=== PATIENT | female | born 1945 | race Caucasian/White ===

== ENCOUNTER 2017-11-15 08:22 | Inpatient (IN) | payer OTHER ==
[2017-10-21 10:47] VITALS: BMI 33.0
--- NOTE | 2017-10-21 11:10 | PAT Medication Instructions ---
Service Date Oct 21, 2017. Current Home Medication List Cholecalciferol (Vitamin D3), 1 TAB PO QAM Garlic (Garlic), 1 CAP PO QAM Ibuprofen (Advil), 400 MG PO UD PRN for Pain Ocuvite Preservision (Ocuvite Preservision), 1 TAB PO QAM Vitamin E (Vitamin E 400 Iu), 400 INTER.UNIT PO QAM Medication Instructions For Your Scheduled Surgery -Contact your surgeon for instructions for: Ibuprofen (Advil), 400 MG PO UD PRN for Pain - Hold the following medications 2 weeks prior to surgery: Garlic (Garlic), 1 CAP PO QAM Ocuvite Preservision (Ocuvite Preservision), 1 TAB PO QAM Vitamin E (Vitamin E 400 Iu), 400 INTER.UNIT PO QAM - Hold the following medications the morning of surgery: Cholecalciferol (Vitamin D3), 1 TAB PO QAM If you have any questions please call us at [phone] or [phone] or [phone]
--- NOTE | 2017-10-21 11:46 | DIAGNOSTIC IMAGING REPORT ---
CHEST 2 VIEWS ROUTINE HISTORY: 72 years-old Female PAT preoperative exam. No acute chest complaints. COMPARISON: None available TECHNIQUE: PA and lateral views of the chest FINDINGS: Cardiomediastinal and hilar silhouettes are within normal limits. Atherosclerosis of the aorta. Surgical clips project over the left breast. Mild biapical pleural-parenchymal scarring. Lungs are mildly hyperinflated. No pneumothorax, pleural effusion, focal airspace consolidation or overt pulmonary edema. Bones of the chest appear grossly intact. There are degenerative changes noted within the shoulders and spine. IMPRESSION: Mild hyperinflation without acute process. The above report was generated using voice recognition software. It may contain grammatical, syntax or spelling errors. Electronically signed by: Yury Del Rio M.D. 10/21/2017 11:45 AM Dictated Date/Time: 10/21/2017 11:44 AM
[2017-10-21 12:45] LABS: BASO % 0.9 %; BASO ABS # 0.08 K/uL (0-0.2); EOS % 1.6 %; EOS ABS # 0.14 K/uL (0-0.5); HEMATOCRIT 42.4 % (37-47); HEMOGLOBIN 14.2 g/dL (12.0-16.0); IG# 0.03 K/uL (0.00-0.02); LYMPH % 22.1 %; MEAN CORPUSCULAR HEMOGLOBIN 31.5 pg (25-34); MEAN CORPUSCULAR HGB CONC 33.5 g/dl (32-36); MEAN PLATELET VOLUME 10.4 fL (7.4-10.4); MONO % 10.4 %; MONO ABS # 0.89 K/uL (0.11-0.59); NEUT % 64.7 %; NEUT ABS # 5.55 K/uL (1.4-6.5); PLATELET COUNT 455 K/uL (130-400); RED CELL DISTRIBUTION WIDTH CV 13.9 % (11.5-14.5); RED CELL DISTRIBUTION WIDTH SD 47.6 fL (36.4-46.3); WHITE BLOOD COUNT 8.59 K/uL (4.8-10.8)
[2017-10-21 12:47] LABS: PTT PATIENT 24.2 SECONDS (21.0-31.0)
[2017-10-21 12:57] LABS: CALCIUM 9.8 mg/dl (8.5-10.1); CREATININE 0.78 mg/dl (0.60-1.20); POTASSIUM 4.5 mmol/L (3.5-5.1)
--- NOTE | 2017-11-14 16:27 | HISTORY & PHYSICAL EXAMINATION ---
DATE OF ADMISSION: 11/15/2017 HISTORY AND PHYSICAL ADMISSION NOTE CHIEF COMPLAINT: Primary osteoarthritis of the left hip. HISTORY OF PRESENT ILLNESS: Mirta is a pleasant 72-year-old female who has a history of a right total hip arthroplasty done [address] Anton. She is doing well with her right hip. She was referred by a friend to see me for ongoing left hip pain. X-rays and clinical examination of her left hip showed advanced osteoarthritis. After failing conservative treatment, she elected to proceed with a left total hip arthroplasty. PAST MEDICAL HISTORY: Denies. PAST SURGICAL HISTORY: Significant for a right total hip arthroplasty, trigger finger release, cholecystectomy and surgery to her left eyelid. ALLERGIES: None. MEDICATIONS: None. SOCIAL HISTORY: She is . Never drinks. Denies any tobacco or IV drug use. She is moderately active. FAMILY HISTORY: Denies. REVIEW OF SYSTEMS: MUSCULOSKELETAL: She complains mostly of left hip pain. All other pertinent review of systems is negative. PHYSICAL EXAMINATION: GENERAL: She is awake, alert and oriented x3. She is in no apparent distress. She is very pleasant. HEENT: Pupils equal, round and reactive to light. Extraocular motion intact. Oral mucosa is pink and moist. HEART: Regular rate per radial pulse. LUNGS: Jelly symmetrically bilaterally with no audible breath sounds. ABDOMEN: Soft, nontender, nondistended. MUSCULOSKELETAL: On physical examination of the left hip, she has reduced range of motion with forced internal and external rotation and reproducible pain in her left groin. Leg lengths are equal. She has active dorsiflexion and plantarflexion of her left ankle. Sensation is intact. She has 5/5 muscle strength with left straight leg raise. IMAGING DATA: X-rays of the left hip do show advanced osteoarthritis with complete joint space narrowing, osteophyte formation and subchondral cyst. IMPRESSION: Primary osteoarthritis of the left hip. PLAN: Will proceed with a left total hip arthroplasty. Postoperatively, she will be started on aspirin for DVT prophylaxis and kept overnight in the hospital for postop medical management.
[~2017-11-15] VITALS: Ht 165.1 cm; Wt 91.8 kg
[2017-11-15] VITALS (8 sets, daily range): BP systolic 111–158; BP diastolic 61–80; PULSE 68–84; TEMP 36.4–37; O2SAT 93–100; Ht 165.1 cm; Wt 91.8 kg
[2017-11-15] MEDS: TRANEXAMIC ACID INJ 1,000 MG x 2 Bags IV SCH ×4 (06:30→09:59)
[~2017-11-15 08:22] MED LIST: ACETAMINOPHEN 500 MG TAB PO SCH; ATROPINE SULFATE 0.1 MG/ML 5ML SYR IV PRN; BUPIVACAINE 0.5 % 5 MG/1 ML PF 10ML VIAL ONE; CEFAZOLIN 2000MG IV PUSH 15 ML IV SCH; CHOL1000 PO; EpHEDrine SULFATE INJ 50 MG/ML AMP IV PRN; FAMOTIDINE 20 MG TAB PO SCH; FENTANYL CITRATE INJ 50 MCG/1 ML 2 ML VIAL IV PRN; FLUMAZENIL 0.1 MG/1 ML 10 ML VIAL IV PRN; GABAPENTIN 300 MG CAP PO SCH; GARL1200 PO; HYDROmorphone INJ 0.5 MG/0.5 ML SYR IV PRN; IBUP-1050 PO; LABETALOL HCL IV 5 MG/ML 20ML IV PRN; LACTATED RINGER'S 1000ML 1,000 ML IV SCH; LACTATED RINGER'S 1000ML IV SCH; MEPERIDINE HCL 25 MG/ML CARP IV PRN; MULT-190 PO; NALOXONE HCL 0.4 MG/1 ML VIAL/CARP IV PRN; ONDANSETRON INJ 2 MG/ML 2 ML VIAL IV PRN; PHENYLEPHRINE 100MCG/ML 5ML SYR IV PRN; ROPIVACAINE 5MG/ML 30 ML 150 MG, BUPIVACAINE 0.5% MPF INJ 30 ML, EpINEphrine HCL INJ 0.... INFIL SCH; VITA400C3 PO
--- NOTE | 2017-11-15 08:54 | History & Physical Bridge Note ---
H&P Re-Evaluation Bridge Note: I have examined the patient, reviewed the History & Physical and in the interval since the performance of the History & Physical I have noted the following changes of clinical significance: No changes noted
[2017-11-15] MEDS ORDERED: MIDAZOLAM HCL 1 MG/ML 2ML VIAL ONE (08:57)
[2017-11-15] MEDS ORDERED: BACITRACIN 50000 UNIT VIAL ONE (09:09)
[2017-11-15] MEDS ORDERED: ORTHO JOINT ANESTHETIC ONE (09:09)
[2017-11-15] MEDS ORDERED: FENTANYL CITRATE INJ 50 MCG/1 ML 2 ML VIAL ONE ×2 (10:37→11:18)
[2017-11-15] MEDS ORDERED: ONDANSETRON INJ 2 MG/ML 2 ML VIAL ONE (11:18)
[2017-11-15] MEDS ORDERED: DEXAMETHASONE SOD INJ 4 MG/ML VIAL ONE (11:18)
[2017-11-15] MEDS ORDERED: PROPOFOL IV EMULSION 10 MG/ML 20 ML VIAL IV ONE (11:18)
[2017-11-15] MEDS ORDERED: PHENYLEPHRINE 100MCG/ML 5ML SYR ONE (11:19)
[2017-11-15] MEDS ORDERED: EpHEDrine SULFATE 50MG/5ML SYR ONE (11:19)
--- NOTE | 2017-11-15 12:12 | [facility] Post Operative Brief Note ---
Immediate Operative Summary Operative Date Nov 15, 2017. Pre-Operative Diagnosis Primary osteoarthritis of the left hip Post-Operative Diagnosis Same as preop Procedure(s) Performed Left Anterior Total Hip Replacement Uncemented Surgeon Dr. Medellin Oxyhydrogen Welder Surgeon(s) Leodan Smith PA-C Estimated Blood Loss 250 ml Findings Consistent with Post-Op Diagnosis Specimens A. Left Femoral Head Drains None Anesthesia Type General Complication(s) none Disposition Disposition: Recovery Room / PACU
--- NOTE | 2017-11-15 12:13 | DIAGNOSTIC IMAGING REPORT ---
FLUOROSCOPIC IMAGES OF THE LEFT HIP CLINICAL HISTORY: LT ANTERIOR TOTAL COMPARISON STUDY: Left hip radiograph September 18, 2017. Fluoroscopy time: 47.4 seconds. FINDINGS: 2 fluoroscopic images demonstrate placement of a left acetabular cup with screw. Femoral component is noted. Alignment appears anatomic. Hardware is intact. No fracture or unexpected radiopaque foreign bodies. IMPRESSION: Expected findings during total left hip arthroplasty. Electronically signed by: Ángel Bosch M.D. 11/15/2017 12:11 PM Dictated Date/Time: 11/15/2017 12:10 PM
[2017-11-15] MEDS ORDERED: ONDANSETRON INJ 2 MG/ML 2 ML VIAL IV PRN (12:15)
[2017-11-15] MEDS ORDERED: BISACODYL 10 MG SUPP PR PRN (12:15)
[2017-11-15] MEDS ORDERED: MAGNESIUM HYDROXIDE SUSP 30 ML UDC PO PRN (12:15)
[2017-11-15] MEDS ORDERED: SOD PHOSPHATE/SOD BIPHOSPHATE ENEMA 132 ML BTL PR PRN (12:15)
[2017-11-15] MEDS ORDERED: OXYCODONE HCL IR 5 MG TAB (IMMEDIATE RELEASE) PO PRN (12:15)
[2017-11-15] MEDS ORDERED: METOCLOPRAMIDE HCL INJ 5 MG/ML 2 ML VIAL IV PRN (12:15)
[2017-11-15] MEDS ORDERED: MoRPHine SULFATE 2 MG/ML CARP IV PRN (12:15)
--- NOTE | 2017-11-15 13:12 | DIAGNOSTIC IMAGING REPORT ---
L PELVIS/UNILATERAL HIP 1 VIEW CLINICAL HISTORY: IN PACU - A/P PELVIS and LATERAL HIP INCLUDING ALL OF IMPLANT COMPARISON: 09/18/2017 DISCUSSION: Total left hip arthroplasty good position. Good contact between between prosthetic and underlying bone. Surgical drains are in position. There is a total right hip arthroplasty considered pre-existing. There appears to be partial subluxation of the femoral component in relation to the acetabulum. This is similar, however as compared to the prior study potentially a chronic basis. IMPRESSION: 1. Good position total left hip arthroplasty. 2. Partial subluxation total right hip prosthetic appearing to be unchanged compared to a prior outside series of images 09/18/2017 The above report was generated using voice recognition software. It may contain grammatical, syntax or spelling errors. Electronically signed by: Stan Trevino M.D. 11/15/2017 1:11 PM Dictated Date/Time: 11/15/2017 1:09 PM
--- NOTE | 2017-11-15 13:31 | Anesthesiology Progress Note ---
Anesthesia Post Op Note Date & Time Nov 15, 2017 at 13:30 Vital Signs Pain Intensity: 0 Vital Signs Past 12 Hours Date Time Temp Pulse Resp B/P (MAP) Pulse Ox O2 Delivery O2 Flow Rate FiO2 11/15/17 13:05 36.8 76 20 130/66 95 Nasal Cannula 2 11/15/17 12:55 80 25 135/72 95 Oxymask 10 11/15/17 12:45 79 18 128/69 95 Oxymask 10 11/15/17 12:35 37.1 87 16 136/76 96 Oxymask 10 11/15/17 08:46 36.6 79 18 158/80 95 Room Air Notes Mental Status: alert / awake / arousable, participated in evaluation Pt Amnestic to Procedure: Yes Nausea / Vomiting: adequately controlled Pain: adequately controlled Airway Patency, RR, SpO2: stable & adequate BP & HR: stable & adequate Hydration State: stable & adequate Neuraxial Anesthesia: was administered, sensory block is resolving Anesthetic Complications: no major complications apparent
--- NOTE | 2017-11-15 14:40 | OPERATIVE REPORT ---
DATE OF OPERATION: 11/15/2017 PREOPERATIVE DIAGNOSIS: Primary osteoarthritis of left hip. POSTOPERATIVE DIAGNOSIS: Same. PROCEDURE: Left total hip arthroplasty. SURGEON: Dr. Padilla Medellin. FURNITURE SANDER: Aguilar Smith PA-C, whose assistance was necessary for retraction and closure. ANESTHESIA: Spinal with a general anesthetic because the spinal was ineffective. COMPLICATIONS: None. CONDITION: Stable to PACU. IMPLANTS USED: I used a [employer] Taperloc total hip arthroplasty system with a size 50 G7 cup with a single 30 mm screw, an E1 neutral poly liner, a size 13 standard offset Taperloc stem and a 36 mm ceramic head with a -6 neck. INDICATIONS: Mirta is a pleasant 72-year-old female who presented to my office with complaints of chronic left hip and groin pain. X-rays and clinical examination were diagnostic for primary osteoarthritis of the left hip. After failing conservative treatment, she elected to undergo a left total hip arthroplasty. OPERATION AND FINDINGS: On 11/15/2017, she arrived at [facility] for the above procedure. She was seen in the preoperative holding and the operative extremity was identified and signed. She was given a preoperative antibiotic and a spinal anesthetic. She was taken back to the operating room, laid on table in supine position. Unfortunately, the spinal was not working very well, so she was then put under general anesthesia. The left hip was then prepped and draped in sterile fashion and brought up to a Purist leg positioner. A timeout was then done, and the patient and the operative extremity was properly identified. An anterior approach was used. Dissection was taken down through the fascia and the tensor muscle belly was retracted laterally and the rectus was retracted medially. The circumflex vessels were ligated and the capsule was incised and tagged for later repair. The femoral neck was then resected and the head was removed. The acetabulum was then exposed. Time was spent doing complete circumferential labral release. Sequential reaming of the acetabulum up to a size 49 reamer was done. Final reaming was done under fluoroscopy to ensure appropriate version. A 50 mm G7 cup was then impacted into place. A single 30 mm screw was placed, followed by the E1 neutral poly liner. Final x-rays of the acetabulum showed anatomic alignment. The proximal femur was then exposed. Sequential broaching up to a size 13 broach was done. Off that broach, a standard head and neck assembly was applied. The hip was then reduced. I was happy with the overall size of the stem but the hip seemed a little bit long. The hip was then dislocated. The trials were removed. The final size 13 standard Taperloc stem was then impacted into place. A 36 mm ceramic head with a -6 neck was then impacted into place. Hip was then reduced and the size of the components and the leg lengths were anatomic. The surrounding soft tissues were injected with 100 mL of an orthopedic pain control cocktail. The capsule was then closed with #1 Vicryl suture. The wound was then irrigated with 3 liters normal saline solution with bacitracin. The fascia was then closed with #1 PDS. Skin was closed with 2-0 Vicryl and donny. A Prevena VAC dressing was applied. She was then extubated, transferred to a [facility] and taken to the post-anesthesia care unit in stable condition. She tolerated the procedure well. I attest to the content of the Intraoperative Record and any orders documented therein. Any exception s are noted below.
[2017-11-15] MEDS: SODIUM CHLORIDE 0.9% 1000ML 1,000 ML IV SCH ×2 (15:17→23:53)
[2017-11-15] MEDS: KETOROLAC TROMETHAMINE 15 MG/ML VIAL IV. SCH ×2 (15:18→21:22)
[2017-11-15] MEDS: ACETAMINOPHEN IV 1,000 MG in EMPTY BAG 0 ML IV SCH ×2 (15:18→23:53)
[2017-11-15] MEDS: CEFAZOLIN IV 2,000 MG in SYRINGE 0 ML IV SCH (17:48)
[2017-11-15] MEDS: ASPIRIN 325 MG ECTAB PO SCH (20:38)
[2017-11-15] MEDS: DOCUSATE SODIUM 100 MG CAP PO SCH (20:38)
[2017-11-15] MEDS ORDERED: SENNA 8.6 MG TAB PO SCH (21:00)
[2017-11-16 03:31] VITALS: BP 156/70; PULSE 76; TEMP 36.9; O2SAT 94
[2017-11-16] MEDS: CEFAZOLIN IV 2,000 MG in SYRINGE 0 ML IV SCH (04:09)
[2017-11-16] MEDS: KETOROLAC TROMETHAMINE 15 MG/ML VIAL IV. SCH ×2 (04:09→08:59)
[2017-11-16 05:50] LABS: BASO % 0.1 %; BASO ABS # 0.02 K/uL (0-0.2); HEMOGLOBIN 12.4 g/dL (12.0-16.0); IG# 0.06 K/uL (0.00-0.02); LYMPH % 7.7 %; LYMPH ABS # 1.16 K/uL (1.2-3.4); MEAN CELL VOLUME 94.9 fL (80-100); MEAN CORPUSCULAR HEMOGLOBIN 31.8 pg (25-34); MEAN CORPUSCULAR HGB CONC 33.5 g/dl (32-36); MEAN PLATELET VOLUME 10.5 fL (7.4-10.4); MONO % 9.7 %; MONO ABS # 1.46 K/uL (0.11-0.59); NEUT % 82.1 %; NEUT ABS # 12.34 K/uL (1.4-6.5); PLATELET COUNT 346 K/uL (130-400); RED CELL DISTRIBUTION WIDTH CV 13.8 % (11.5-14.5); RED CELL DISTRIBUTION WIDTH SD 47.3 fL (36.4-46.3); WHITE BLOOD COUNT 15.04 K/uL (4.8-10.8)
[2017-11-16 06:20] LABS: CALCIUM 8.1 mg/dl (8.5-10.1); CREATININE 0.89 mg/dl (0.60-1.20); POTASSIUM 3.6 mmol/L (3.5-5.1)
[2017-11-16] MEDS ORDERED: ASPEC325 PO (07:17)
[2017-11-16] MEDS ORDERED: RXC5 PO (07:17)
--- NOTE | 2017-11-16 07:18 | Discharge Instructions ---
Discharge Instructions Date of Service Nov 16, 2017. Admission Reason for Admission: Left Hip Degenerative Joint Disease Discharge Discharge Diagnosis / Problem: Left Total Hip Discharge Goals Goal(s): Decrease discomfort, Improve function Activity Recommendations Activity Limitations: as noted below . Instructions / Follow-Up Instructions / Follow-Up Activity and Therapy Recommendations: * If you are using [facility] then Physical Therapy will be provided until they feel you are ready to start Outpatient Physical Therapy. If you are not using a Home Health agency then Outpatient Physical Therapy should start about 3-5 days from your day of surgery. Therapy will last about 3-6 weeks * You were shown a series of exercises in the hospital. Do these exercises three times each day including the exercises you were shown in physical therapy. * Get up and walk several times each day.~ For the first four weeks, try not to stand or walk for more than one hour at a time. If you do stand or walk for more than one hour, you will not hurt anything, but your leg will likely swell.~ ~ * As you feel comfortable, you may change from the walker or crutches to a cane and~then to independent walking. Medications: * Narcotic You will likely be sent home from the hospital with a prescription for the narcotic pain medication that worked best throughout your stay. * Aspirin Most patients will be required to take Aspirin 325mg twice a day for 6 weeks after surgery. This is obtained [id number] and a prescription is not necessary. * Other medications may be prescribed for specific circumstances. If you have any questions, please call the office at . * Resume previous home medications unless otherwise instructed TEDs/Elastic Stockings: The white elastic stockings help limit swelling and prevent blood clots from forming in your legs. The more you wear them, the more they work. Wear them for six weeks. Dressing Care: You will likely have a purple VAC dressing after surgery. This dressing will keep the incision dry and promote early healing. After about 8 days the batteries will wear out and the VAC will lose suction. Simply remove the dressing at that time and throw everything away, including the small suction machine. Then, you may leave the donny open to air or cover them with a dry dressing so they do not rub on your pants. The donny will be removed at your 2 week follow-up appointment. Showering: You may shower immediately with the purple VAC dressing. Let the shower spray hit your opposite side and slowly pat the plastic dry. Do not soak the dressing. After the dressing is removed you may shower normally with the donny exposed. Let soapy water run over the donny and pat them dry. Things To Watch For: * Drainage from the incision site that occurs more than one week after your surgery. * Increased redness at the incision site. * Fever above 102 degrees Fahrenheit. * Unusual chest pain or shortness of breath. * Call [facility] at with any of the above problems Follow-Up Visit: Follow-up with Dr. Medellin 2 weeks after your day of surgery. An appointment was probably scheduled when you signed-up for surgery in the office. If you have any questions call Office Instructions: More detailed instructions as well as Frequently Asked Questions were provided in a folder by our office when you signed-up for surgery. Please review these instructions when you get home. If you have any further questions or concerns, please feel free to call the office at [phone] Current Hospital Diet Patient's current hospital diet: Regular Diet Discharge Diet Recommended Diet: Regular Diet Procedures Procedures Performed: Left Anterior Total Hip Replacement Uncemented Pending Studies Studies pending at discharge: no Medical Emergencies . Who to Call and When: Medical Emergencies: If at any time you feel your situation is an emergency, please call [phone] immediately. . Non-Emergent Contact Non-Emergency issues call your: Surgeon Call Non-Emergent contact if: wound has increased drainage, wound has increased redness . "Provider Documentation" section prepared by Padilla Medellin. .
[2017-11-16 07:25] VITALS: BP 136/69; PULSE 66; TEMP 36.7; O2SAT 96
--- NOTE | 2017-11-16 07:44 | PROGRESS NOTE ---
DATE: 11/16/2017 CHIEF COMPLAINT: Status post left total hip arthroplasty postop day #1. PROGRESS: Mirta was seen and examined at bedside today. Overall, she is doing very well. She has been up and ambulating to the bathroom. She has very little pain in her left hip, has no complaints. PHYSICAL EXAMINATION: LEFT HIP: The Prevena VAC dressing is to suction. Her leg lengths are equal. She has active dorsiflexion and plantarflexion of her left ankle. Quad sensation is intact. LABORATORY DATA: She has an H&H today of 12.4 and 37.0. Her glucose is 134. Her vital signs are all stable on room air and she is voiding on her own. X-rays postoperatively of the left hip showed the prosthesis to be in anatomic alignment without any evidence of fracture, dislocation or loosening. IMPRESSION: Status post left total hip arthroplasty postop day #1. PLAN: At this point, she is doing well and happy with her progress. She will be seen by physical therapy today for ambulation. Her pain seems well controlled. She is on aspirin for DVT prophylaxis. If she is doing well this afternoon, she can be discharged to home. She is having [facility] take care of her at home.
[2017-11-16] MEDS ORDERED: NURSING VERBAL MED ORDER ONE (07:45)
--- NOTE | 2017-11-16 07:50 | DISCHARGE SUMMARY ---
DISCHARGE DIAGNOSIS: Primary osteoarthritis of the left hip. PROCEDURE: Left total hip arthroplasty on 11/15/[address] Padilla Medellin. DISCHARGE INSTRUCTIONS: 1. Aspirin 325 mg twice a day for 6 weeks. 2. SOPHIA hose stockings for 6 weeks. 3. Oxycodone 5-10 mg every 4 hours as needed for pain. 4. Vitamin D 1000 units daily. 5. Daily multivitamin. 6. Vitamin E 400 units daily. 7. Follow up with Dr. Medellin in 2 weeks. 8. Call the office of Dr. Medellin with any questions or concerns. HOSPITAL COURSE: Mirta is a pleasant 72-year-old female who presented to my office with chronic left hip and groin pain. X-rays and clinical examination were diagnostic for primary osteoarthritis of the left hip. After failing conservative treatment, she elected to undergo a left total hip arthroplasty. On 11/15/2017, she arrived at [facility] and underwent a left anterior total hip arthroplasty without complications. Postoperatively, she was started on aspirin for DVT prophylaxis and discharged to general orthopedic floors. Her hospital course was uneventful. On postop day #1, her H&H was stable at 12.4 and 37.0. She was up and ambulating well with physical therapy. Her pain was relatively well controlled. She had instructions on the Prevena VAC dressing. She was subsequently discharged to home with aspirin and the above instructions.
[2017-11-16] MEDS ORDERED: ACETAMINOPHEN 500 MG TAB PO SCH ×2 (08:00→22:00)
[2017-11-16] MEDS ORDERED: ACETAMINOPHEN 500 MG TAB PO ONE (08:55)
[2017-11-16] MEDS: DOCUSATE SODIUM 100 MG CAP PO SCH (08:58)
[2017-11-16] MEDS: ASPIRIN 325 MG ECTAB PO SCH (08:59)
[2017-11-16] MEDS ORDERED: TOCOPHERYL, DL-ALPHA 400 INTER.UNIT CAP PO SCH (09:00)
[2017-11-16] MEDS ORDERED: MULTIVITAMIN TAB PO SCH (09:00)
[2017-11-16] MEDS ORDERED: CHOLECALCIFEROL 1000 INTER.UNIT TAB PO SCH (09:00)
[2017-11-16 10:17] VITALS: BP 136/69; PULSE 66; TEMP 36.7; O2SAT 96
[2017-11-16 11:16] VITALS: BP 157/92; PULSE 68; TEMP 36.8; O2SAT 96
[2017-11-16 12:58] VITALS: BP 133/83; PULSE 84; O2SAT 98
== END 2017-11-16 14:00 | disposition home or self-care (01) | DRG 470 ==
LOC: C.ACU 08:22 → C.3E 09:00 → ENRESERV 13:05
PROVIDERS: ADMIT Orthopaedic Surgery; ATTEND Orthopaedic Surgery
PROC: 0SRB04A Replacement of Left Hip Joint with Ceramic on Polyethylene Synthetic Substitute, Uncemented, Open Approach (ICD-10-PCS; principal; 2017-11-15 10:45)
DX: M16.12 Unilateral primary osteoarthritis, left hip (principal); Z96.641 Presence of right artificial hip joint